=== PATIENT | female | born 1950 | race Caucasian/White ===

== ENCOUNTER → 2016-08-03 | Day surgery (SDC) | payer OTHER, MEDICARE ==
[~2016-08-03] VITALS: Ht 154.9 cm; Wt 68.0 kg
[~2016-08-03] MED LIST: CRESTOR5 M1 PO; METOPROLOL SUCC25 M1 PO
--- NOTE | 2016-08-03 09:19 | Operative Report ---
Operative/Inv Procedure Report Surgery Date: 08/03/16 Name of Procedure: Left subclavian Port-A-Cath placement Pre-Operative Diagnosis: Breast cancer recurrent Post-Operative Diagnosis: Same Estimated Blood Loss: scant Surgeon/Rn Transitional: SONJA GALLO MD Anesthesia: moderate sedation Operative Indication: Patient has remote history of breast cancer status post resection and reconstruction, right side. She now presents with delayed local recurrence and requires neoadjuvant chemotherapy. Operative/Procedure Note Note: After consent she is brought to the operative laid supine. Sedation was obtained and her left chest and neck were prepped and draped. Using ultrasound guidance, the left subclavian vein was identified and per continuously accessed with a needle. Wire was placed down to the right atrium and confirmation of placement was obtained with fluoroscopy. An incision was made next to the wire and a pocket created inferiorly. This was done with blunt and cautery dissection. The port was placed into the pocket and the catheter measured under fluoroscopy. It was trimmed to 21 cm. The dilator was then placed over the wire into the right atrium. The cath was placed through the sheath which was then peeled away. Final fluoroscopic images showed the catheter in the atrial/ SVC junction. The port was flushed with concentrated heparin. Port was anchored to the deep subcutaneous tissues tissues with 0 Vicryl suture. The wound and closed in layers of absorbable sutures. Steri-Strips and sterile dressing applied. Sponge and needle counts are correct CC: DARRELL CHILDRESS,DARRICK
--- NOTE | 2016-08-03 09:22 | RADIOLOGY REPORT ---
EXAMINATION: XR CHEST CLINICAL INFORMATION: Left-sided Port-A-Cath insertion. COMPARISON: None TECHNIQUE: 3 intraoperative fluoroscopic spot images were acquired followed by AP semiupright chest radiograph. FINDINGS: Intraoperative fluoroscopic images: Images demonstrate a left-sided port with catheter tip extending to the superior vena cava. There is a surgical tool projecting over the field. No discontinuities are visualized along the catheter. Chest x-ray: The cardiomediastinal silhouette appears within normal limits. The left-sided port is visualized, with tip in the superior vena cava. No pneumothoraces are evident. The lungs are clear. No pulmonary edema, consolidation, or pleural effusion. There are clips within the right breast and right adnexa. The spine is not well visualized due to technique. No evidence of acute osseous abnormality. IMPRESSION: Left-sided port with tip in the superior vena cava. No pneumothorax.
== END ==
LOC: STS 01:46
DX: C50.611 Malignant neoplasm of axillary tail of right female breast (principal); Z85.3 Personal history of malignant neoplasm of breast; I10 Essential (primary) hypertension; E78.00 Pure hypercholesterolemia, unspecified
CPT/HCPCS: C1788; J0131; J0690; J1644; J2250